=== PATIENT | male | born 1965 | race Caucasian/White ===

== ENCOUNTER → 2020-06-12 10:12 | Outpatient (CLI) | payer OTHER, SELFPAY ==
--- NOTE | 2020-06-12 | DI.RAD.S_ITS ---
PROCEDURE: [place] SHOULDER INJECTION MR/CT LT INDICATIONS: PAIN IN LT SHOULDER TECHNIQUE: The indications, alternatives, benefits, risks, and complications of the procedure were explained to the patient. Written informed consent was obtained and placed in the chart. The shoulder was examined fluoroscopically and a site for needle placement chosen for entry into the glenohumeral joint from an anterior approach. The skin was prepped and draped in a sterile fashion, and 1% lidocaine infiltrated from skin down to joint capsule. A spinal needle was inserted into the glenohumeral joint, and a small amount of iodinated contrast media injected to confirm intra-articular placement of the needle tip. This was followed by approximately 12 mL dilute solution of a gadolinium containing MR contrast agent. The needle was removed and a dressing was applied. The patient was given postprocedural instructions and sent to the MR suite for MR imaging. FINDINGS: A single fluoroscopic spot image demonstrates intra-articular location of injected iodinated contrast. IMPRESSION: Successful fluoroscopically guided administration of dilute Gadolinium solution into the shoulder joint for MR arthrogram. Dictated by: Veto Preston M.D. on 06/12/2020 at 15:08 Approved by: Veto Preston M.D. on 06/12/2020 at 15:09
--- NOTE | 2020-06-12 | DI.MRI.S_ITS ---
PROCEDURE: MR SHOULDER LT W CON INDICATIONS: PAIN IN LT SHOULDER TECHNIQUE: After the administration of 12 mL of dilute intra-articular Gadolinium contrast, oblique coronal T1 and T2 spin echo with fat saturation, oblique sagittal T1 spin echo with and without fat saturation, oblique sagittal T2 fast spin echo with fat saturation, axial T1 spin echo with fat saturation through the shoulder. COMPARISON: [facility], MR, SHOULDER LT W/ CONTRAST, 11/02/2011, 16:32. [facility] [place], CR, XR SHOULDER 2+ VIEWS LEFT, 06/01/2020, 9:29. [facility], RF, [place] SHOULDER INJECTION MR/CT LT, 06/12/2020, 9:55. FINDINGS: Image quality: Excellent. Rotator cuff: Postsurgical changes are seen from prior rotator cuff repair with suture anchors in the greater tuberosity. There is recurrent full-thickness tearing of the supraspinatus tendon and the anterior portion of the infraspinatus tendon with proximal retraction of tendon fibers by up to 3.8 cm from the fixation device. Some of the posterior infraspinatus tendon fibers remain in continuity. The infraspinatus tendon is intact. The subscapularis tendon again demonstrates high-grade and likely full-thickness tearing of the superior insertion at does not appear significantly changed when compared to the prior MRI from 11/02/2011. There is mild atrophy of the superior portion of the subscapularis muscle. Bones and bursae: No bone marrow contusions or fractures. There is mild osteophytic spurring in the glenoid rim in the inferior humeral head. Focal high-grade cartilage loss is seen in the central glenoid and there is also nearly full-thickness cartilage loss in the medial humeral head. Mild to moderate acromioclavicular joint degeneration is noted. Intra-articular contrast material communicates with the subacromial/subdeltoid bursa. Capsule and soft tissues: There is mild irregularity of the superior labrum that may be secondary to surgical debridement or degeneration without a displaced tear. The biceps long head tendon is again not visualized, most likely secondary to full-thickness tearing with distal retraction versus postsurgical changes. The coracohumeral ligament is of normal thickness. No intra-articular bodies. IMPRESSION: 1. Postsurgical changes from rotator cuff tendon repair with recurrent full-thickness tearing of the supraspinatus tendon and the anterior portion of the infraspinatus tendon, with proximal tendon retraction measuring up to 3.8 cm from the fixation device. 2. High-grade and likely full-thickness tearing of the superior fibers of the subscapularis tendon does not appear significantly changed when compared to the prior MRI from 11/02/2011. 3. Complete tearing distal retraction of the biceps long head tendon again noted. 4. 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 Dictated by: Angel Leslie M.D. on 06/12/2020 at 12:03 Approved by: Angel Leslie M.D. on 06/12/2020 at 12:25
== END ==
PROVIDERS: Referring Provider Orthopaedic Surgery; Visit Provider Orthopaedic Surgery
DX: M25.512 Pain in left shoulder (principal); M75.122 Complete rotator cuff tear or rupture of left shoulder, not specified as traumatic; S46.112A Strain of muscle, fascia and tendon of long head of biceps, left arm, initial encounter; M19.012 Primary osteoarthritis, left shoulder
CPT/HCPCS: 23350; 73222; 77002